=== PATIENT | female | born 1975 | race Caucasian/White ===

== ENCOUNTER 2024-02-21 09:16 | Emergency (ER) | payer BC ==
[~2024-02-21] VITALS: Ht 149.9 cm; Wt 108.9 kg
[~2024-02-21 09:16] MED LIST: CODGUAEL PO; CYCL10 PO; ESTR.1TPBW; HYDACE5 PO; Norco 5-325 Ta1 EACH PO; PROG100; PROM25 PO; PROP10; Prozac20 MG; RXCYCL10 PO; TRAZ100; Zofran Odt4 MG SL
--- NOTE | 2024-02-21 09:55 | NUR ---
Pt. 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 Spouse is present. Facilitated an update of the Pts. condition. Listen with empathy and a calming presence. Consider matters of victor hugo and belief. Prayed with the Pt. Pt. verbalized gratitude fo rthe spiritual care visit. Will remain available to Pt. and family.
[2024-02-21 11:20] LABS: BASOPHILS ABSOLUTE AUTO 0.03 K/mm3 (0.00-0.23); BASOPHILS PERCENT AUTO 0 % (0-2); EOSINOPHILS ABSOLUTE AUTO 0.17 K/mm3 (0.00-0.68); EOSINOPHILS PERCENT AUTO 2 % (0-6); Hematocrit 43.2 % (33.0-51.0); Hemoglobin 14.6 g/dL (11.5-16.0); IMMATURE GRAN ABSOLUTE AUTO 0.01 K/mm3 (0.00-0.10); IMMATURE GRAN PERCENT AUTO 0 % (0-1); LYMPHOCYTES ABSOLUTE AUTO 1.67 K/mm3 (0.84-5.20); LYMPHOCYTES PERCENT AUTO 23 % (21-46); MONOCYTES ABSOLUTE AUTO 0.42 K/mm3 (0.16-1.47); MONOCYTES PERCENT AUTO 6 % (4-13); Mean Corpuscular HGB 28.7 pg (26.0-34.0); Mean Corpuscular HGB Conc 33.8 g/dL (31.5-36.5); Mean Corpuscular Volume 85 fL (80-100); Mean Platelet Volume 10.5 fL (9.1-12.4); NEUTROPHILS ABSOLUTE AUTO 4.85 K/mm3 (1.96-9.15); NEUTROPHILS PERCENT AUTO 68 % (41-73); Platelet Count 316 K/mm3 (150-400); RDW Coefficient Variation 12.6 % (11.7-14.2); RDW Standard Deviation 38.8 fL (35.1-46.3); Red Blood Cell Count 5.09 M/mm3 (3.80-5.20); White Blood Cell Count 7.15 K/mm3 (4.00-11.30)
[2024-02-21 11:44] LABS: Albumin, Blood 3.8 g/dL (3.4-5.0); Albumin/Globulin Ratio 0.9 (0.8-1.8); Bilirubin, Total 0.6 mg/dL (0.1-1.0); Bun/Creatinine Ratio 13.7 (12.0-20.0); Calcium, Blood 9.3 mg/dL (8.5-10.1); Creatinine, Blood 0.8 mg/dL (0.40-1.00); Globulin, Blood 4.2 g/dL (2.2-4.0); Potassium, Blood 4.1 mmol/L (3.5-5.5)
[2024-02-21 14:00] VITALS: BP 126/70
[2024-02-21] MEDS ORDERED: Protonix40 MG PO (14:28)
== END 2024-02-21 14:43 | disposition home or self-care (01) ==
LOC: ER 09:16
PROVIDERS: Emergency Medicine
DX: R10.13 Epigastric pain (principal); R10.11 Right upper quadrant pain; Z79.899 Other long term (current) drug therapy
CPT/HCPCS: 80053; 83690; 85025; 99284